=== PATIENT | male | born 1965 | race Caucasian/White ===

== ENCOUNTER 2023-04-18 15:58 | Inpatient (IN) | payer OTHER ==
[~2023-04-18] VITALS: Ht 177.8 cm; Wt 77.1 kg
[2023-04-18] MEDS ORDERED: SODIUM CHLORIDE 0.9% 1000ML 1,000 ML IV STA (16:03)
[2023-04-18] MEDS ORDERED: ONDANSETRON HCL INJ 2MG/ML 2ML 2 MG/ML VIAL IV STA (16:03)
[2023-04-18 16:42] LABS: BASOPHILS # (AUTO) 0.1 (0.0-0.1); BASOPHILS % 0.4 % (0.0-1.0); EOSINOPHILS # (AUTO) 0.4 (0.0-0.4); EOSINOPHILS % 1.8 % (0.0-6.0); HEMATOCRIT 37.2 % (38.2-49.6); HEMOGLOBIN 12.2 g/dL (14.0-18.0); LYMPHOCYTES # (AUTO) 2.2 (1.0-3.2); LYMPHOCYTES % 11.3 % (18.0-39.1); MEAN CORPUSCULAR HEMOGLOBIN 31.1 pg (28-32); MEAN CORPUSCULAR HGB CONC 32.8 g/dL (31-35); MEAN CORPUSCULAR VOLUME 94.9 fL (81-99); MONOCYTES % 4.8 % (4.4-11.3); NEUTROPHILS % 81.3 % (38.7-80.0); PLATELET COUNT 276 x10e3/uL (140-360); RED BLOOD COUNT 3.92 x10e6/uL (4.3-5.7); RED CELL DISTRIBUTION WIDTH 12.8 % (11.7-14.4)
[2023-04-18 16:53] LABS: INR 1.17; PROTHROMBIN TIME 15.4 seconds (11.9-14.5)
[2023-04-18 16:54] LABS: PARTIAL THROMBOPLASTIN TIME 26.7 seconds (23.8-35.5)
[2023-04-18 17:05] LABS: ALANINE AMINOTRANSFERASE 10 IU/L (0-55); ALBUMIN 3.5 g/dL (3.5-5.0); ALBUMIN/GLOBULIN RATIO 1.4 (0.8-2.0); ALKALINE PHOSPHATASE 105 IU/L (40-150); ANION GAP 14.1 mmol/L (8-16); BLOOD UREA NITROGEN 18 mg/dL (7-26); BUN/CREATININE RATIO 15 (6-25); CALCIUM 8.8 mg/dL (8.4-10.2); CARBON DIOXIDE 22 mmol/L (22-29); CHLORIDE 107 mmol/L (98-107); CREATINE KINASE 31 IU/L (30-200); GLUCOSE 161 mg/dL (74-118); LIPASE 8 U/L (8-78); MAGNESIUM 1.9 MG/DL (1.3-2.1); POTASSIUM 4.1 mmol/L (3.5-5.1); SODIUM 139 mmol/L (136-145)
[2023-04-18] MEDS ORDERED: IOPAMIDOL 370 MG/ML 100 ML INFUS..BTL INJ ONE (17:18)
[2023-04-18] MEDS ORDERED: SODIUM CHLORIDE 0.9% 100 ML ONE (17:18)
[2023-04-18 17:56] LABS: CLARITY,URINE CLEAR (CLEAR); COLOR,URINE YELLOW (YELLOW)
[2023-04-18 17:57] LABS: KETONES,URINE 2+ (NEGATIVE); LEUKOCYTE ESTERASE ,URINE NEGATIVE (NEGATIVE); NITRITE,URINE NEGATIVE (NEGATIVE); PROTEIN,URINE DIPSTICK NEGATIVE (NEGATIVE); URINE UROBILINOGEN 0.2 mg/dL (0.2 - 1)
[2023-04-18 18:09] LABS: BACTERIA,URINE RARE /HPF; WBC,URINE (MAN) 0-5 /HPF (0-5)
[2023-04-18] MEDS: METRONIDAZOLE 500MG/NS 100ML 100 ML IV SCH ×2 (19:30→22:44)
[2023-04-18 20:00] VITALS: BP 111/73; PULSE 67; RESP 17; TEMP 98.6; O2SAT 100
[2023-04-18 21:08] VITALS: BP 111/73; PULSE 64; RESP 18; TEMP 98.6; O2SAT 100
[2023-04-18] MEDS ORDERED: LITHOBID300 MG PO (21:34)
[2023-04-18] MEDS ORDERED: NEURONTIN100 MG PO (21:34)
[2023-04-18] MEDS ORDERED: PROZAC10 MG PO (21:34)
[2023-04-18] MEDS: LITHIUM CARBONATE ER 300 MG TAB PO SCH (22:37)
[2023-04-18] MEDS: SODIUM CHLORIDE 0.9% 1000ML 1,000 ML IV SCH (22:38)
[2023-04-18 23:50] VITALS: PULSE 66; RESP 18; O2SAT 100
[2023-04-19] VITALS (11 sets, daily range): BP systolic 114–135; BP diastolic 63–82; PULSE 65–74; RESP 16–20; TEMP 98.2–98.9; O2SAT 99–100
[2023-04-19] MEDS ORDERED: ALBUTEROL/IPRATROPIUM 3 ML NEB NEB PRN
[2023-04-19 05:40] LABS: BASOPHILS # (AUTO) 0.1 (0.0-0.1); BASOPHILS % 0.5 % (0.0-1.0); EOSINOPHILS # (AUTO) 0.1 (0.0-0.4); HEMATOCRIT 28.1 % (38.2-49.6); HEMOGLOBIN 9.4 g/dL (14.0-18.0); LYMPHOCYTES # (AUTO) 1.2 (1.0-3.2); LYMPHOCYTES % 12.6 % (18.0-39.1); MEAN CORPUSCULAR HEMOGLOBIN 31.1 pg (28-32); MEAN CORPUSCULAR HGB CONC 33.5 g/dL (31-35); MONOCYTES # (AUTO) 0.6 (0.2-0.8); MONOCYTES % 6.2 % (4.4-11.3); NEUTROPHILS # (AUTO) 7.8 (2.1-6.9); NEUTROPHILS % 79.4 % (38.7-80.0); PLATELET COUNT 158 x10e3/uL (140-360); RED BLOOD COUNT 3.02 x10e6/uL (4.3-5.7); RED CELL DISTRIBUTION WIDTH 12.6 % (11.7-14.4)
[2023-04-19] MEDS: SODIUM CHLORIDE 0.9% 1000ML 1,000 ML IV SCH ×2 (05:41→11:29)
[2023-04-19] MEDS: METRONIDAZOLE 500MG/NS 100ML 100 ML IV SCH ×2 (05:41→11:28)
[2023-04-19 06:24] LABS: ALBUMIN/GLOBULIN RATIO 1.4 (0.8-2.0); ANION GAP 10.6 mmol/L (8-16); CALCIUM 8.3 mg/dL (8.4-10.2); CREATININE, SERUM 1.13 mg/dL (0.72-1.25); POTASSIUM 3.6 mmol/L (3.5-5.1)
[2023-04-19] MEDS ORDERED: ALBUTEROL INHALER INH (11:32)
[2023-04-19] MEDS ORDERED: ALBUTEROL SULFATE HFA 8GM INHALATION AEROSOL INH PRN ×2 (11:45→12:00)
[2023-04-19] MEDS: FLUOXETINE HCL 10 MG CAP PO SCH (11:51)
[2023-04-19 12:00] LABS: BASOPHILS % 0.2 % (0.0-1.0); EOSINOPHILS % 0.5 % (0.0-6.0); HEMATOCRIT 27.2 % (38.2-49.6); LYMPHOCYTES # (AUTO) 0.9 (1.0-3.2); LYMPHOCYTES % 10.3 % (18.0-39.1); MEAN CORPUSCULAR HEMOGLOBIN 31.1 pg (28-32); MEAN CORPUSCULAR HGB CONC 33.1 g/dL (31-35); MEAN CORPUSCULAR VOLUME 94.1 fL (81-99); MONOCYTES # (AUTO) 0.4 (0.2-0.8); MONOCYTES % 5.2 % (4.4-11.3); NEUTROPHILS # (AUTO) 6.9 (2.1-6.9); NEUTROPHILS % 83.6 % (38.7-80.0); PLATELET COUNT 149 x10e3/uL (140-360); RED BLOOD COUNT 2.89 x10e6/uL (4.3-5.7); RED CELL DISTRIBUTION WIDTH 12.7 % (11.7-14.4)
[2023-04-19] MEDS ORDERED: ONDANSETRON HCL INJ 2MG/ML 2ML 2 MG/ML VIAL IV PRN (12:30)
[2023-04-19] MEDS: LITHIUM CARBONATE ER 300 MG TAB PO SCH (20:56)
[2023-04-19] MEDS: ACETAMINOPHEN 325 MG TAB PO PRN (22:28)
[2023-04-20] VITALS (10 sets, daily range): BP systolic 120–136; BP diastolic 68–80; PULSE 62–79; RESP 17–21; TEMP 98.2–98.9; O2SAT 98–100
[2023-04-20 06:50] LABS: BASOPHILS # (AUTO) 0.1 (0.0-0.1); BASOPHILS % 0.9 % (0.0-1.0); EOSINOPHILS # (AUTO) 0.3 (0.0-0.4); HEMATOCRIT 25.9 % (38.2-49.6); HEMOGLOBIN 8.5 g/dL (14.0-18.0); MEAN CORPUSCULAR HEMOGLOBIN 31.5 pg (28-32); MEAN CORPUSCULAR HGB CONC 32.8 g/dL (31-35); MEAN CORPUSCULAR VOLUME 95.9 fL (81-99); MONOCYTES # (AUTO) 0.5 (0.2-0.8); MONOCYTES % 6.9 % (4.4-11.3); NEUTROPHILS # (AUTO) 4.7 (2.1-6.9); NEUTROPHILS % 71.9 % (38.7-80.0); PLATELET COUNT 128 x10e3/uL (140-360); RED CELL DISTRIBUTION WIDTH 12.6 % (11.7-14.4)
[2023-04-20 07:27] LABS: ANION GAP 8.5 mmol/L (8-16); CALCIUM 8.1 mg/dL (8.4-10.2); CREATININE, SERUM 0.93 mg/dL (0.72-1.25); POTASSIUM 3.5 mmol/L (3.5-5.1)
[2023-04-20] MEDS: FLUOXETINE HCL 10 MG CAP PO SCH (09:42)
[2023-04-20] MEDS: ACETAMINOPHEN 325 MG TAB PO PRN (11:28)
[2023-04-20] MEDS: LITHIUM CARBONATE ER 300 MG TAB PO SCH (20:30)
[2023-04-21] VITALS (10 sets, daily range): BP systolic 118–148; BP diastolic 70–77; PULSE 60–79; RESP 17–20; TEMP 98–99; O2SAT 97–100
[2023-04-21] MEDS: ACETAMINOPHEN 325 MG TAB PO PRN ×2 (02:22→21:25)
[2023-04-21 07:46] LABS: BASOPHILS # (AUTO) 0.1 (0.0-0.1); BASOPHILS % 0.7 % (0.0-1.0); EOSINOPHILS # (AUTO) 0.3 (0.0-0.4); HEMATOCRIT 28.7 % (38.2-49.6); HEMOGLOBIN 9.5 g/dL (14.0-18.0); LYMPHOCYTES # (AUTO) 1.6 (1.0-3.2); LYMPHOCYTES % 18.7 % (18.0-39.1); MEAN CORPUSCULAR HEMOGLOBIN 31.5 pg (28-32); MEAN CORPUSCULAR HGB CONC 33.1 g/dL (31-35); MONOCYTES # (AUTO) 0.6 (0.2-0.8); MONOCYTES % 6.9 % (4.4-11.3); NEUTROPHILS # (AUTO) 5.8 (2.1-6.9); NEUTROPHILS % 69.5 % (38.7-80.0); PLATELET COUNT 179 x10e3/uL (140-360); RED BLOOD COUNT 3.02 x10e6/uL (4.3-5.7); RED CELL DISTRIBUTION WIDTH 12.8 % (11.7-14.4)
[2023-04-21 08:09] LABS: ANION GAP 12.2 mmol/L (8-16); CALCIUM 8.5 mg/dL (8.4-10.2); CREATININE, SERUM 1.06 mg/dL (0.72-1.25); POTASSIUM 3.2 mmol/L (3.5-5.1)
[2023-04-21] MEDS: FLUOXETINE HCL 10 MG CAP PO SCH (09:00)
[2023-04-21] MEDS ORDERED: POTASSIUM CHLORIDE 20 MEQ TAB CR PO ONE (12:45)
[2023-04-21] MEDS: LITHIUM CARBONATE ER 300 MG TAB PO SCH (21:00)
[2023-04-22] VITALS: BP 131/94; PULSE 74; RESP 20; TEMP 98.6; O2SAT 100
[2023-04-22 04:00] VITALS: BP 125/62; PULSE 79; RESP 20; TEMP 98.7; O2SAT 100
[2023-04-22 07:50] VITALS: BP 127/68; PULSE 76; RESP 20; TEMP 98.3; O2SAT 100
[2023-04-22 08:36] VITALS: BP 127/68; PULSE 76; RESP 20; TEMP 98.3; O2SAT 100
[2023-04-22] MEDS: FLUOXETINE HCL 10 MG CAP PO SCH (09:00)
[2023-04-22 10:25] VITALS: PULSE 71; RESP 18; O2SAT 98
[2023-04-22] MEDS ORDERED: ONDANSETRON HCL 4 MG ORAL DISINTEGRATING TAB PO PRN (12:45)
[2023-04-22 16:36] VITALS: BP 128/69; PULSE 60; RESP 19; TEMP 98.2; O2SAT 100
[2023-04-22] MEDS ORDERED: PANTOPRAZOLE SOD 40 MG TABEC PO ONE (17:00)
[2023-04-22] MEDS ORDERED: PANTOPRAZOLE SO40 MG PO (18:26)
[2023-04-23] MEDS ORDERED: PANTOPRAZOLE SOD 40 MG TABEC PO SCH (06:00)
== END 2023-04-22 18:48 | disposition home or self-care (01) | DRG 378 ==
LOC: ER 16:04 → ERHOLD 18:23 → MED/SURG3 20:40
PROVIDERS: ADMIT Internal Medicine; ATTEND Internal Medicine
PROC: 0DB68ZX Excision of Stomach, Via Natural or Artificial Opening Endoscopic, Diagnostic (ICD-10-PCS; principal; 2023-04-22 13:29)
DX: K28.0 Acute gastrojejunal ulcer with hemorrhage (principal); D62 Acute posthemorrhagic anemia; K91.840 Postprocedural hemorrhage of a digestive system organ or structure following a digestive system procedure; Y83.2 Surgical operation with anastomosis, bypass or graft as the cause of abnormal reaction of the patient, or of later complication, without mention of misadventure at the time of the procedure; Y73.8 Miscellaneous gastroenterology and urology devices associated with adverse incidents, not elsewhere classified; Y92.9 Unspecified place or not applicable; D69.6 Thrombocytopenia, unspecified; K44.9 Diaphragmatic hernia without obstruction or gangrene; K29.60 Other gastritis without bleeding; K28.9 Gastrojejunal ulcer, unspecified as acute or chronic, without hemorrhage or perforation; E87.6 Hypokalemia; F39 Unspecified mood [affective] disorder; Z20.822 Contact with and (suspected) exposure to COVID-19; Z98.84 Bariatric surgery status
CPT/HCPCS: 0223U; 36415; 43239; 71045; 74174; 80048; 80053; 80178; 81001; 82550; 82948; 83690; 83735; 84484; 85025; 85610; 85730; 86850; 86900; 86920; 87040; 87086; 88305; 88342; 93005; 94640; 94799; 99284; J2405; J2543; J7030; J7050; Q9967